=== PATIENT | female | born 1970 | race Caucasian/White ===

== ENCOUNTER 2022-01-05 08:37 | Emergency (ER) | payer OTHER ==
[2022-01-05 10:00] LABS: HEMOGLOBIN 13.2 gm/dl (12.3-15.3); RED BLOOD COUNT 4.45 M/UL (4.00-5.10); WHITE BLOOD COUNT 6.5 K/UL (4.5-11.0)
[2022-01-05 10:26] LABS: BUN/CREATININE RATIO 23 (0-10)
[2022-01-05] MEDS ORDERED: OMNICEF 300 MG300 MG PO (11:29)
[2022-01-06 09:14] LABS: HBSAG SCREEN Negative (Negative); HCV AB <0.1 (0.0-0.9); HEP A AB, IGM Negative (Negative); HEP B CORE AB, IGM Negative (Negative)
== END 2022-01-05 11:59 | disposition home or self-care (01) ==
LOC: ER1 08:37
PROVIDERS: Physician Assistant
DX: N39.0 Urinary tract infection, site not specified (principal); R79.89 Other specified abnormal findings of blood chemistry; F17.200 Nicotine dependence, unspecified, uncomplicated
CPT/HCPCS: 80053; 80074; 81001; 83690; 85025; 87086; 99284